=== PATIENT | female | born 1980 | race Hispanic/Latino ===

== ENCOUNTER 2022-01-05 08:01 | Emergency (ER) | payer OTHER ==
[~2022-01-05] VITALS: Ht 149.9 cm; Wt 63.5 kg
[2022-01-05] MEDS ORDERED: MORPHINE 2 MG SYG IVP ONE (08:30)
[2022-01-05] MEDS ORDERED: LIDOCAINE HCL 2% VISCOUS 15 ML UDCUP PO ONE (08:30)
[2022-01-05] MEDS ORDERED: MAG/ALUM/SIMETH 30 ML UDCUP PO ONE (08:30)
[2022-01-05] MEDS ORDERED: ONDANSETRON 4MG INJ IVP ONE (08:30)
[2022-01-05] MEDS ORDERED: DICYCLOMINE HCL 10 MG/5 ML ML PO ONE (08:30)
[2022-01-05 08:46] LABS: BASOPHILS % (AUTO) 0.5 % (0.0-5.0); EOSINOPHILS % (AUTO) 0.2 % (0.0-8.0); HEMATOCRIT 31.1 % (36-48); LYMPHOCYTES % (AUTO) 10.9 % (21.0-51.0); MEAN CORPUSCULAR HEMOGLOBIN 21.5 pg (27.0-33.0); MEAN CORPUSCULAR HGB CONC 28.6 g/dL (32.0-36.0); MEAN CORPUSCULAR VOLUME 75.1 fL (79-99); MONOCYTES % (AUTO) 3.5 % (3.0-13.0); NEUTROPHILS % (AUTO) 84.4 % (40.0-77.0); PLATELET COUNT (AUTO) 550 K/uL (130-400); RED BLOOD CELL COUNT(AUTO) 4.14 MIL/uL (4.00-5.50); RED CELL DISTRIBUTION WIDTH 19.5 % (11.0-15.5)
[2022-01-05 09:24] LABS: ALBUMIN 4.2 g/dL (3.5-5.0); BILIRUBIN,TOTAL 0.5 mg/dL (0.2-1.0); CREATININE 0.9 mg/dL (0.5-1.5); TOTAL PROTEIN, SERUM 8.6 g/dL (6.0-8.3)
[2022-01-05 11:01] LABS: APPEARANCE,URINE Cloudy (CLEAR); BILIRUBIN,URINE Negative (NEGATIVE); COLOR,URINE Yellow (YELLOW); GLUCOSE, URINE (UA) Negative (NEGATIVE); KETONES,URINE 15 mg/dL (NEGATIVE); LEUKOCYTE ESTERASE ,URINE Negative (NEGATIVE); NITRATE,URINE Negative (NEGATIVE); OCCULT BLOOD,URINE Negative (NEGATIVE); PH,URINE 6.5 (5.0-8.0); PROTEIN,URINE POS 1+ mg/dL (NEGATIVE); UROBILINOGEN,URINE 0.2 mg/dL (0.2-1.0)
[2022-01-05 11:17] LABS: HCG,QUAL RESULT NEGATIVE (NEGATIVE)
[2022-01-05] MEDS ORDERED: OMEP40CA21 PO (11:25)
[2022-01-05 11:32] LABS: BACTERIA,URINE Few /HPF (None Seen); MUCUS,URINE Many LPF (None Seen); RBC,URINE 0-1 /HPF (0-1); SQUAMOUS EPITHELIAL CELL,UR Few /HPF (0-2)
[2022-01-05 11:33] LABS: AMORPHOUS SEDIMENT,UR Few /LPF (None Seen)
[2022-01-05 11:43] VITALS: BP 114/66
== END 2022-01-05 11:59 | disposition home or self-care (01) ==
LOC: EDH 08:01
DX: K29.70 Gastritis, unspecified, without bleeding (principal); K21.9 Gastro-esophageal reflux disease without esophagitis; Z79.899 Other long term (current) drug therapy
CPT/HCPCS: 36415; 71045; 80053; 81001; 81025; 82150; 82550; 83690; 84484; 85025; 86677; 93005; 96374; 96375; 99285; J2405

== ENCOUNTER 2022-01-10 18:21 | Emergency (ER) | payer OTHER ==
[~2022-01-10] VITALS: Ht 149.9 cm; Wt 68.0 kg
[~2022-01-10 18:21] MED LIST: OMEP40CA21 PO
[2022-01-10] MEDS ORDERED: 0.9%NACL 1000ML 1,000 ML IV ONE (20:00)
[2022-01-10] MEDS ORDERED: ONDANSETRON 4MG INJ IVP SCH (20:00)
[2022-01-10] MEDS ORDERED: FAMOTIDINE 20MG VIAL IV SCH (20:00)
[2022-01-10] MEDS ORDERED: PANTOPRAZOLE 40 MG/VIAL IVP SCH (20:00)
[2022-01-10] MEDS ORDERED: METOCLOPRAMIDE 10 MG/2 ML VIAL IVP SCH (20:00)
[2022-01-10] MEDS ORDERED: 0.9%NACL 1000ML 1,000 ML IV SCH (20:00)
[2022-01-10 20:22] LABS: APPEARANCE,URINE CLEAR (CLEAR); BILIRUBIN,URINE NEGATIVE (NEGATIVE); COLOR,URINE YELLOW (YELLOW); GLUCOSE, URINE (UA) NEGATIVE (NEGATIVE); KETONES,URINE NEGATIVE (NEGATIVE); LEUKOCYTE ESTERASE ,URINE NEGATIVE (NEGATIVE); NITRATE,URINE NEGATIVE (NEGATIVE); OCCULT BLOOD,URINE NEGATIVE (NEGATIVE); PROTEIN,URINE NEGATIVE (NEGATIVE); UROBILINOGEN,URINE 0.2 mg/dL (0.2-1.0)
[2022-01-10 20:26] LABS: BASOPHILS % (AUTO) 0.9 % (0.0-5.0); EOSINOPHILS % (AUTO) 0.6 % (0.0-8.0); HEMATOCRIT 30.4 % (36-48); LYMPHOCYTES % (AUTO) 25.5 % (21.0-51.0); MEAN CORPUSCULAR HEMOGLOBIN 21.8 pg (27.0-33.0); MEAN CORPUSCULAR HGB CONC 29.3 g/dL (32.0-36.0); MEAN CORPUSCULAR VOLUME 74.3 fL (79-99); MONOCYTES % (AUTO) 5.9 % (3.0-13.0); NEUTROPHILS % (AUTO) 66.9 % (40.0-77.0); PLATELET COUNT (AUTO) 549 K/uL (130-400); RED BLOOD CELL COUNT(AUTO) 4.09 MIL/uL (4.00-5.50); RED CELL DISTRIBUTION WIDTH 18.6 % (11.0-15.5); WHITE BLOOD COUNT (AUTO) 8.6 K/uL (4.8-10.8)
[2022-01-10 20:39] LABS: CREATININE 0.7 mg/dL (0.5-1.5); POTASSIUM 3.6 mmol/L (3.5-5.1)
[2022-01-10 20:44] LABS: ALBUMIN 3.8 g/dL (3.5-5.0); BILIRUBIN,TOTAL 0.5 mg/dL (0.2-1.0); TOTAL PROTEIN, SERUM 7.2 g/dL (6.0-8.3)
[2022-01-10] MEDS ORDERED: DICY20TA2 PO (21:24)
[2022-01-10] MEDS ORDERED: PANT40TA PO (21:24)
[2022-01-10] MEDS ORDERED: METO-296 PO (21:24)
[2022-01-10] MEDS ORDERED: ONDA4TAB10 PO (21:24)
[2022-01-10 21:36] VITALS: BP 128/58
== END 2022-01-10 21:38 | disposition home or self-care (01) ==
LOC: EDH 18:21
DX: K29.70 Gastritis, unspecified, without bleeding (principal); E86.9 Volume depletion, unspecified; K21.9 Gastro-esophageal reflux disease without esophagitis; Z79.899 Other long term (current) drug therapy; Z87.891 Personal history of nicotine dependence
CPT/HCPCS: 36415; 80053; 81003; 81025; 83605; 83690; 85025; 96374; 96375; 99284; C9113; J2405; J2765; J3490; J7030

== ENCOUNTER 2022-11-05 12:10 | Emergency (ER) | payer OTHER ==
[~2022-11-05] VITALS: Ht 152.4 cm; Wt 62.1 kg
[~2022-11-05 12:10] MED LIST changes: +DICY20TA2 PO; +METO-296 PO; +ONDA4TAB10 PO; +PANT40TA PO
[2022-11-05 12:37] VITALS: BP 142/95
== END 2022-11-05 13:06 | disposition left against medical advice (07) ==
LOC: EDH 12:10
DX: R11.10 Vomiting, unspecified (principal); Z53.21 Procedure and treatment not carried out due to patient leaving prior to being seen by health care provider

== ENCOUNTER 2022-11-05 13:36 | Emergency (ER) | payer OTHER ==
[2022-11-05 13:37] VITALS: BP 131/86
[2022-11-05 15:09] LABS: APPEARANCE,URINE CLEAR (CLEAR); BILIRUBIN,URINE NEGATIVE (NEGATIVE); COLOR,URINE LIGHT-YELLOW (YELLOW); GLUCOSE, URINE (UA) NEGATIVE (NEGATIVE); KETONES,URINE NEGATIVE (NEGATIVE); LEUKOCYTE ESTERASE ,URINE NEGATIVE Leu/uL (NEGATIVE); NITRATE,URINE NEGATIVE (NEGATIVE); OCCULT BLOOD,URINE NEGATIVE (NEGATIVE); PROTEIN,URINE NEGATIVE (NEGATIVE); UROBILINOGEN,URINE 0.2 mg/dL (0.2-1.0)
[2022-11-05 15:17] LABS: HCG,QUALITATIVE URINE NEGATIVE (NEGATIVE)
[2022-11-05] MEDS ORDERED: LIDOCAINE HCL 2% VISCOUS 15 ML UDCUP PO ONE (15:30)
[2022-11-05] MEDS ORDERED: DICYCLOMINE HCL 10 MG/5 ML ML PO ONE (15:30)
[2022-11-05] MEDS ORDERED: MAG/ALUM/SIMETH 30 ML UDCUP PO ONE (15:30)
[2022-11-05 15:43] LABS: MUCUS,URINE FEW LPF (None Seen); RBC,URINE 0-1 /HPF (0-1); SQUAMOUS EPITHELIAL CELL,UR RARE /HPF (0-2); WBC,URINE 0-1 /HPF (0-1)
[2022-11-05 15:52] LABS: BASOPHILS % (AUTO) 0.9 % (0.0-5.0); EOSINOPHILS % (AUTO) 0.5 % (0.0-8.0); HEMATOCRIT 33.6 % (36-48); LYMPHOCYTES % (AUTO) 25.1 % (21.0-51.0); MEAN CORPUSCULAR HGB CONC 30.1 g/dL (32.0-36.0); MEAN CORPUSCULAR VOLUME 76.4 fL (79-99); MONOCYTES % (AUTO) 4.7 % (3.0-13.0); NEUTROPHILS % (AUTO) 68.6 % (40.0-77.0); PLATELET COUNT (AUTO) 483 K/uL (130-400); RED CELL DISTRIBUTION WIDTH 19.6 % (11.0-15.5); WHITE BLOOD COUNT (AUTO) 8.7 K/uL (4.8-10.8)
[2022-11-05 16:01] LABS: CREATININE 0.7 mg/dL (0.5-1.5); POTASSIUM 3.8 mmol/L (3.5-5.1)
[2022-11-05 16:05] LABS: ALBUMIN 4.2 g/dL (3.5-5.0); TOTAL PROTEIN, SERUM 7.9 g/dL (6.0-8.3)
== END 2022-11-05 17:00 | disposition home or self-care (01) ==
LOC: EDH 13:36
DX: K29.70 Gastritis, unspecified, without bleeding (principal); F17.200 Nicotine dependence, unspecified, uncomplicated; K21.9 Gastro-esophageal reflux disease without esophagitis; Z79.899 Other long term (current) drug therapy
CPT/HCPCS: 36415; 80053; 81001; 81025; 83690; 85025